=== PATIENT | female | born 1995 | race Caucasian/White ===

== ENCOUNTER 2021-07-25 17:57 | Emergency (ER) | payer OTHER, SELFPAY ==
[2021-07-25 17:58] VITALS: BP 129/74; PULSE 113; RESP 16; TEMP 36.7; O2SAT 99; BMI 25.0
--- NOTE | 2021-07-25 18:46 | ED.VIS.FEGU ---
HPI HPI - Female History of Present Illness Chief Complaint: Flank Pain Informant: patient Narrative Narrative: Patient presents with left flank pain. Right now it is much better and she is not really hurting. She states she started with some mild dysuria or discomfort with urination on . It is hard to get from her if it was causing pain or just dysuria. She did not have frequency or urgency. Tuesday evening or this morning she started to get some pain in her left flank. She thought it was her sciatica but then she noticed it felt different. She has had a couple episodes where it was pretty severe but right now it is not bad. She was seen over in urgent care. They did a urinalysis diagnosed over the UTI. They started her on an antibiotic which she took. She is not sure what antibiotic that was. She came in here because she got significant left flank pain again. However at this moment, she is not hurting. She has mild transient nausea but no vomiting. She also felt as though she was a little bit warm. No documented fever. She has no history of kidney stones. She states that at this moment she feels pretty good. PFSH PFSH Medical History no medical history Home Medications norgestimate-ethinyl estradiol [Sprintec (28)] 1 tab PO DAILY 07/25/21 [History Last Taken Unknown] Allergy/AdvReac Type Severity Reaction Status Date / Time No Known Allergies Allergy Verified 07/25/21 17:58 Surgical History no surgical history Social History Smoking Status: Never smoker ROS ROS ED Constitutional Constitutional ED: Reports chills and subjective ENT ENT ED: Denies rhinorrhea or sore throat Cardiovascular Cardiovascular: Denies chest pain or palpitations Respiratory/Chest Respiratory/Chest: Denies cough or dyspnea Gastrointestinal Gastrointestinal: Reports nausea; Denies abdominal pain, constipation, diarrhea or vomiting Genitourinary Genitourinary ED: Reports dysuria and other Details: See history of present illness ; Denies hematuria or urinary frequency Musculoskeletal Musculoskeletal: Denies arthralgias or myalgias Integumentary Denies rash Neurologic Neurologic: Denies headache(s), paresthesias or weakness Endocrine Endocrinology: Denies polydipsia or polyuria Hematologic/Lymphatic Hematologic/Lymphatic: Denies easy bleeding or easy bruising Allergic/Immunologic Allergic/Immunologic ED: Denies urticaria EXAM Physical Exam Const Vital Signs: 07/25/21 17:58 07/25/21 20:14 Temperature 98.1 F Temperature Source Temporal Pulse Rate 113 H 78 Respiratory Rate 16 16 Blood Pressure 129/74 H 124/76 H Blood Pressure Mean 92 92 Pulse Ox 99 99 Oxygen Delivery Method Room Air Patient looks comfortable sitting in bed at this time. Positive well nourished and well developed General Appearance ED: well developed and NAD HEENT Reports moist mucous membranes Eyes PERRL and EOMs intact bilaterally Neck no JVD Resp normal respiratory effort and clear to auscultation bilaterally Cardio regular rate and regular rhythm GI normal to inspection, nondistended, normoactive bowel sounds, soft to palpation, non-tender and non-distended Narrative: Mild left CVA tenderness but also tenderness to soft palpation. Back/Spine Back/Spine Narrative: See above. Extremity normal to inspection Neuro Sensorium / Orientation: alert Psych mental status grossly normal Skin no rashes or lesions noted MDM MDM MDM Narrative Medical decision making narrative: is negative. Urine is strongly positive for UTI. CAT scan did not show any acute process or sign of kidney. There was a 1.3 cm splenic density. I explained this to the patient and that she needs to follow-up with her physician for both for her primary illness/UTI but also for this finding on CT. They may do follow-up studies. Patient already is on antibiotics. She just started them today before coming in. I explained she should continue those. If she has fevers chills worsening pain vomiting or other findings she may need to return. Because she does have some flank pain with a UTI she likely does have some mild pyelonephritis even though that is not seen specifically on CT. Lab Data Attestation: I reviewed the patient's lab results. Labs: Laboratory Results - last 24 hr 07/25/21 07/25/21 18:10 19:04 Serum , Qual NEGATIVE Urine Color Yellow Urine Clarity Cloudy Urine pH 6.0 Ur Specific [place] 1.015 Urine Protein 30 H Urine Glucose (UA) Normal Urine Ketones 5 H Urine Occult Blood 25 H Urine Nitrite Positive H Urine Bilirubin Negative Urine Urobilinogen 1 H Ur Leukocyte Esterase 500 H Urine RBC 0-5 SEEN Urine WBC 50-100 SEEN Ur Squamous Epith Cells 5-10 SEEN Urine Bacteria 2+ Urine Mucus 1+ Radiography Diagnostic Testing: Radiology Impression Abdomen/Pelvis CT 07/25/21 19:32 IMPRESSION: No acute abnormalities. Intermediate density 1.3 cm hypodensity in the spleen is indeterminate. Differential includes cyst, hemangioma and other less likely etiologies. Consider non-emergent follow-up multiphase CT abdomen w/ and w/out contrast. Electronically Signed: Vaughn Lama MD at 20:04 EDT Tel , Service support , Discharge Plan Triage Chief Complaint: Flank Pain ED Provider: Dony Louis Dx/Rx/DC Orders Clinical Impression: Pyelonephritis of left kidney Prescriptions: No Action norgestimate-ethinyl estradiol [Sprintec (28)] 0.25-35 mg-mcg Tablet 1 tab PO DAILY RF: 0 Primary Care Provider: Daniela Miner NP Referrals: Daniela Miner NP, [employer] [Primary Care Provider] - 3-5 Days if not improving Disposition Disposition: Home, Self Care
[2021-07-25 19:03] LABS: Internal QC Validated? YES +Cl - CLEAR BKGD
[2021-07-25 19:22] LABS: Color, Urine Yellow (Yellow); Glucose, Dipstick Normal (Normal); Ketone-Dipstick 5 mg/dl (Negative); Leukocyte Esterase-Dipstick 500 /ul (Negative); Nitrite-Dipstick Positive (Negative); Occult Blood-Urine 25 /ul (Negative); Protein-Dipstick 30 mg/dl (Negative); Specific Gravity, Urine 1.015 (1.002-1.030); Urine Bilirubin Dipstick Negative (Negative); Urine Clarity Cloudy (Clear); Urine Urobilinogen 1 mg/dl (Normal)
[2021-07-25 19:23] LABS: Pregnancy, Serum, hCG Quali. NEGATIVE Negative
--- NOTE | 2021-07-25 19:32 | CT_ITS ---
INDICATION: left flank pain EXAMINATION: CT Abdomen And Pelvis W/O Contrast Injection TECHNIQUE: Helically acquired images were obtained of the abdomen and pelvis without the use of IV contrast. A radiation dose optimization technique was used for this scan. Oral contrast: None. COMPARISON: None FINDINGS: Evaluation of the solid organs and vascular structures is limited without intravenous contrast. Visualized lung bases: Unremarkable Liver: Unremarkable Gallbladder: Unremarkable Spleen: Intermediate density 1.3 cm hypodensity in the spleen. Pancreas: Unremarkable Adrenal Glands: Unremarkable Kidneys: Unremarkable Vasculature: Unremarkable GI Tract: Unremarkable Lymphadenopathy: None Peritoneum: No ascites. Bladder: Unremarkable Reproductive organs: Unremarkable Bones/Soft tissues: No suspicious osseous or soft tissue lesions CT/Abdomen/Pelvis without Cont IMPRESSION: No acute abnormalities. Intermediate density 1.3 cm hypodensity in the spleen is indeterminate. Differential includes cyst, hemangioma and other less likely etiologies. Consider non-emergent follow-up multiphase CT abdomen w/ and w/out contrast. Electronically Signed: Vaughn Lama MD at 20:04 EDT Tel , Service support ,
[2021-07-25 19:35] LABS: Bacteria 2+ /hpf (None Seen); Red Blood Cells-Urine 0-5 SEEN /hpf (0-5); White Blood Cells 50-100 SEEN /hpf (0-5)
[2021-07-25 19:36] LABS: Mucous, Urine 1+ /hpf (<or=2+); Squamous Epithelial Cells - UA 5-10 SEEN /hpf (5-10)
[2021-07-25 20:14] VITALS: BP 124/76; PULSE 78; RESP 16; O2SAT 99
== END 2021-07-25 21:24 | disposition home or self-care (01) ==
PROVIDERS: Emergency Provider Emergency Medicine; PCP Registered Nurse
DX: N12 Tubulo-interstitial nephritis, not specified as acute or chronic (principal)
CPT/HCPCS: 74176; 81001; 84703; 99283

== ENCOUNTER 2022-09-06 15:00 | Outpatient (CLI) | payer OTHER, SELFPAY ==
[2022-09-06] VITALS (43 sets, daily range): BP systolic 140–187; BP diastolic 79–116; PULSE 66–91; RESP 16; TEMP 36.7–37.3; O2SAT 97–100; BMI 34.5
[2022-09-06] MEDS: Magnesium Sulfate 4gm/100mL 4 GM/100 ML IV.SOLN. IV (15:35)
[2022-09-06] MEDS: Labetalol (Prefilled) 20 MG/4 ML IV (15:45)
[2022-09-06 15:50] LABS: Absolute Lymphocyte Count 2.55 X10^3/uL (0.83-4.51); Absolute Neutrophil Count 4.1 X10^3/uL (2.0-7.7); Basophil# 0.03 X10^3/uL; Basophil% 0.4 % (0-1); Eosinophil# 0.13 X10^3/uL; Eosinophils% 1.8 % (0-5); Hematocrit 35.5 % (37-47); Hemoglobin 11.9 g/dL (12.0-15.0); Lymphocyte # 2.55 X10^3/ul (0.83-4.51); Mean Corp Hgb Conc 33.5 g/dL (32-36); Mean Corpuscular Hgb 32.9 pg (27.0-32.0); Mean Corpuscular Volume 98.1 fL (81-99); Mean Platelet Vol. 12.2 fl (6.2-12.0); Monocyte# 0.49 X10^3/uL; Monocyte% 6.7 % (0-10); NRBC Flagged by Analyzer 0 % (0-5); Neutrophil # 4.06 X10^3/uL (2.7-7.7); Neutrophil % 55.8 % (47-70); Platelet Count 144 K/mm3 (150-450); RBC Distribution Width CV 12.3 % (11.6-14.6); Red Blood Count 3.62 M/mm3 (4.2-5.4); White Blood Count 7.3 K/mm3 (4.4-11.0)
[2022-09-06] MEDS: Magnesium Sulfate 20 GM/500 ML BAG IV (15:55)
[2022-09-06] MEDS: Labetalol (Prefilled) 20 MG/4 ML 40 MG IV (16:01)
[2022-09-06] MEDS: Betamethasone/Betamethasone 30 MG/5 ML Vial 12 MG IM (16:02)
[2022-09-06] MEDS: Labetalol 100 MG/20 ML Vial 80 MG IV (16:26)
[2022-09-06] MEDS: hydrALAZINE 20 MG/ML Vial 10 MG IV (16:40)
--- NOTE | 2022-09-06 17:00 | HP.PCM.OB_ITS ---
HPI - General General Date of Admission: 09/06/22 Date of Service: 09/06/22 Chief Complaint: elevated BP HPI Narrative NACHO AGUILAR, is a 26 female @ 28 5/7 weeks who presented to the office on 09/03 w/ mildly elevated BP and increased weight and increased protein in urine. Had preeclampsia labs done and prot/creat ratio was signifcantly elevated. Called into office today and TruBP in 160s/90s range. Denied VENCES or visual changes. SOme increased edema. Good FM. No VB/LOF. Some mild neck soreness. Maternal Data Information Gestational age: 28 5/7 PFSH PFSH Home Medications PNV 153-FA 400 mcg-om3 35 mg-dha 25 mg-epa 5 mg-fish oil chew tablet ( Gummies) 2 tab PO DAILY 09/06/22 [History Last Taken 09/06/22 05:00] Allergy/AdvReac Type Severity Reaction Status Date / Time No Known Allergies Allergy Verified 09/06/22 15:16 Social History Smoking Status: Never smoker NST FHR Rate Baby A Baseline: 130 Variability:: Moderate Accelerations:: 10 x 10 Decelerations:: None NST Reactive:: Appropriate for gestational age FHR Category:: Category I Uterine Activity:: quiet Vital Signs Vital Signs Vital Signs: 09/06/22 15:16 09/06/22 15:16 09/06/22 15:36 Temperature Temperature Source Pulse Rate 81 Respiratory Rate Respiratory Effort Respiratory Depth Respiratory Pattern Blood Pressure 184/113 H Blood Pressure Mean BP Systolic 184 BP Diastolic 113 Blood Pressure Source Blood Pressure Position Blood Pressure Location Pulse Ox 100 Oxygen Delivery Method 09/06/22 15:36 09/06/22 15:46 09/06/22 15:46 Temperature Temperature Source Pulse Rate 69 71 Respiratory Rate Respiratory Effort Respiratory Depth Respiratory Pattern Blood Pressure 182/109 H Blood Pressure Mean BP Systolic 182 BP Diastolic 109 Blood Pressure Source Blood Pressure Position Blood Pressure Location Pulse Ox Oxygen Delivery Method 09/06/22 15:46 09/06/22 15:46 09/06/22 15:51 Temperature Temperature Source Pulse Rate 70 72 Respiratory Rate Respiratory Effort Respiratory Depth Respiratory Pattern Blood Pressure Blood Pressure Mean BP Systolic BP Diastolic Blood Pressure Source Blood Pressure Position Blood Pressure Location Pulse Ox 100 Oxygen Delivery Method 09/06/22 15:51 09/06/22 15:56 09/06/22 15:56 Temperature Temperature Source Pulse Rate 69 Respiratory Rate Respiratory Effort Respiratory Depth Respiratory Pattern Blood Pressure 187/116 H Blood Pressure Mean BP Systolic 187 BP Diastolic 116 Blood Pressure Source Blood Pressure Position Blood Pressure Location Pulse Ox 100 Oxygen Delivery Method 09/06/22 15:56 09/06/22 15:56 09/06/22 16:01 Temperature Temperature Source Pulse Rate 73 69 Respiratory Rate Respiratory Effort Respiratory Depth Respiratory Pattern Blood Pressure Blood Pressure Mean BP Systolic BP Diastolic Blood Pressure Source Blood Pressure Position Blood Pressure Location Pulse Ox 100 Oxygen Delivery Method 09/06/22 16:01 09/06/22 16:06 09/06/22 16:06 Temperature Temperature Source Pulse Rate 76 Respiratory Rate Respiratory Effort Respiratory Depth Respiratory Pattern Blood Pressure Blood Pressure Mean BP Systolic BP Diastolic Blood Pressure Source Blood Pressure Position Blood Pressure Location Pulse Ox 100 99 Oxygen Delivery Method 09/06/22 16:09 09/06/22 16:11 09/06/22 16:11 Temperature 99.1 F Temperature Source Pulse Rate 69 Respiratory Rate Respiratory Effort Respiratory Depth Respiratory Pattern Blood Pressure Blood Pressure Mean BP Systolic BP Diastolic Blood Pressure Source Blood Pressure Position Blood Pressure Location Pulse Ox 99 Oxygen Delivery Method 09/06/22 16:16 09/06/22 16:16 09/06/22 16:16 Temperature Temperature Source Pulse Rate 66 82 Respiratory Rate Respiratory Effort Respiratory Depth Respiratory Pattern Blood Pressure 165/106 H Blood Pressure Mean BP Systolic 165 BP Diastolic 106 Blood Pressure Source Blood Pressure Position Blood Pressure Location Pulse Ox Oxygen Delivery Method 09/06/22 16:16 09/06/22 16:21 09/06/22 16:21 Temperature Temperature Source Pulse Rate 70 Respiratory Rate Respiratory Effort Respiratory Depth Respiratory Pattern Blood Pressure Blood Pressure Mean BP Systolic BP Diastolic Blood Pressure Source Blood Pressure Position Blood Pressure Location Pulse Ox 100 100 Oxygen Delivery Method 09/06/22 16:26 09/06/22 16:26 09/06/22 16:31 Temperature Temperature Source Pulse Rate 72 71 Respiratory Rate Respiratory Effort Respiratory Depth Respiratory Pattern Blood Pressure Blood Pressure Mean BP Systolic BP Diastolic Blood Pressure Source Blood Pressure Position Blood Pressure Location Pulse Ox 100 Oxygen Delivery Method 09/06/22 16:31 09/06/22 16:35 09/06/22 16:36 Temperature 98.1 F Temperature Source Pulse Rate Respiratory Rate Respiratory Effort Respiratory Depth Respiratory Pattern Blood Pressure 166/99 H Blood Pressure Mean BP Systolic 166 BP Diastolic 99 Blood Pressure Source Blood Pressure Position Blood Pressure Location Pulse Ox 100 Oxygen Delivery Method 09/06/22 16:36 09/06/22 16:36 09/06/22 16:36 Temperature Temperature Source Pulse Rate 74 81 Respiratory Rate Respiratory Effort Respiratory Depth Respiratory Pattern Blood Pressure Blood Pressure Mean BP Systolic BP Diastolic Blood Pressure Source Blood Pressure Position Blood Pressure Location Pulse Ox 99 Oxygen Delivery Method 09/06/22 16:41 09/06/22 16:41 09/06/22 16:46 Temperature Temperature Source Pulse Rate 76 78 Respiratory Rate Respiratory Effort Respiratory Depth Respiratory Pattern Blood Pressure Blood Pressure Mean BP Systolic BP Diastolic Blood Pressure Source Blood Pressure Position Blood Pressure Location Pulse Ox 100 Oxygen Delivery Method 09/06/22 16:46 09/06/22 16:51 09/06/22 16:51 Temperature Temperature Source Pulse Rate 80 Respiratory Rate Respiratory Effort Respiratory Depth Respiratory Pattern Blood Pressure Blood Pressure Mean BP Systolic BP Diastolic Blood Pressure Source Blood Pressure Position Blood Pressure Location Pulse Ox 100 99 Oxygen Delivery Method 09/06/22 16:56 09/06/22 16:56 09/06/22 15:48 Temperature 99.2 F H Temperature Source Temporal Pulse Rate 77 86 Respiratory Rate 16 Respiratory Effort Normal Non-Labored Respiratory Depth Normal Respiratory Pattern Normal Blood Pressure 182/109 H Blood Pressure Mean 133 BP Systolic BP Diastolic Blood Pressure Source Monitor Blood Pressure Position Semi-Fowlers Blood Pressure Location Left Arm Pulse Ox 100 97 Oxygen Delivery Method Room Air 09/06/22 16:03 09/06/22 16:33 09/06/22 16:40 Temperature 98.0 F Temperature Source Temporal Pulse Rate 71 72 72 Respiratory Rate 16 16 Respiratory Effort Respiratory Depth Respiratory Pattern Blood Pressure 187/116 H 166/99 H 166/99 H Blood Pressure Mean 139 121 BP Systolic BP Diastolic Blood Pressure Source Monitor Monitor Blood Pressure Position Semi-Fowlers Semi-Fowlers Blood Pressure Location Left Arm Left Arm Pulse Ox 99 98 Oxygen Delivery Method Room Air Room Air Weight Weight: 100 kg Body Mass Index (BMI) 34.5 Physical Exam Narrative awake, alert, NAD Ext 1+ edema, 3+ Dtrs , 3 beats clonus abd- soft, nontender, gravid Labs Labs Labs: Hct 35.5 % (37-47) L Hgb 11.9 g/dL (12.0-15.0) L Assessment & Plan (1) 28 weeks gestation of : (2) Pre-eclampsia in third trimester: PLAN: Severe range BPS. Patient seen in me by office. D/ wher plan to local L&D for assessment and initiation of mag/HTN emergency protocol and when stable transport to [facility] for M availablity for consult and NICU availablitity. Betamethasone 12 mg IM x 1 given in anticipation of delivery. Received IV labetalol up to 80 mg and BP still in severe range. At tarted after hydralazine IV, will give 20 mg po now and make sure stable BP before transport. Patient consents to this plan, questions answered to best of my availability. Category 1 FHTS. Case discussed by Octavio Willoughby CNM w/ Dr. Malachi Mcgrath [facility] who accepts transport to [facility] after patient is medically and obstetrically deemed stable.
[2022-09-06 17:04] LABS: AST(SGOT) 48 U/L (15-37); Alanine Aminotransfer ALT/SGPT 46 U/L (13-56); EST Glomerular Filtration Rate 128 mL/min (>60); Est Glom Filt Rate - Afr Amer 154 mL/min (>60); Estimated Creatinine Clearance 139.38 ml/min; Uric Acid 5.5 mg/dL (2.6-6.0)
[2022-09-06] MEDS: hydrALAZINE 10 MG Tablet 20 MG PO (17:39)
== END 2022-09-06 18:09 | disposition home or self-care (01) ==
LOC: WPOUT 15:29 → WP 15:30
PROVIDERS: Obstetrics & Gynecology; PCP Registered Nurse; Visit Provider Advanced Practice Midwife
DX: O14.93 Unspecified pre-eclampsia, third trimester (principal); O99.891 Other specified diseases and conditions complicating pregnancy; Z3A.28 28 weeks gestation of pregnancy
CPT/HCPCS: 96374; 96375; 59050; 82565; 84450; 84460; 84550; 85025; 85027; 99218; G0378; J0702